=== PATIENT | female | born 1945 | race Caucasian/White ===

== ENCOUNTER → 2017-03-26 | Outpatient (CLI) | payer OTHER, BC | LOC: BMCIMAGING 12:21 | PROVIDERS: ATTEND Internal Medicine Rheumatology | DX: M06.00 Rheumatoid arthritis without rheumatoid factor, unspecified site (principal); M19.041 Primary osteoarthritis, right hand; M19.042 Primary osteoarthritis, left hand ==

== ENCOUNTER 2018-06-08 17:40 | Emergency (ER) | payer OTHER, BC ==
--- NOTE | 2018-06-08 18:24 | EDPHY ---
H & P Time Seen by Provider: 06/08/18 18:01 HPI/ROS: CHIEF COMPLAINT: Right wrist pain HISTORY OF PRESENT ILLNESS: 72-year-old female history of rheumatoid arthritis complaining of a 3-4 days of atraumatic right radial wrist pain. The patient discontinued her methotrexate a few months ago prior to spinal surgery, her methotrexate was restarted May 31 No discoloration. No fever or chills. No paresthesia. PRIMARY CARE PROVIDER: Dr. Matt Ramirez Rheumatology REVIEW OF SYSTEMS: A ten point review of systems was performed and is negative with the exception of the items mentioned in the HPI PHYSICAL EXAM (Prior to examination, patient consented to physical exam, hands were washed and my usual and customary physical exam procedures followed) 1) GENERAL: Well-developed, well-nourished, alert and oriented. Appears to be in no acute distress. 2) HEAD: Normocephalic 3) HEENT: Pupils equal, round, reactive to light bilaterally. 4) LUNGS: Breathing comfortably. 5) MUSCULOSKELETAL: Normal coloration. Tender to palpation anatomic snuffbox. Tender to palpation range of motion of the thumb. Negative kanavel sign. No effusion. Soft compartments. Normal coloration. 6) SKIN: [ No discoloration. No erythema. 7) VASCULAR: pulses and cap refill present are brisk 8) NEUROLOGIC: Radial, ulnar, median nerve function intact with no deficits appreciated on exam DIFFERENTIAL DIAGNOSIS: in no particular order including but not limited to fracture, sprain, compartment syndrome Procedure: Splint A Velcro thumb spica splint was applied by ER plasma center technician. After application of the splint I returned and re-examined the patient. The splint was adequately immobilizing the joint and distal to the splint the patient's circulation and sensation were intact. Patient shows no signs of compartment syndrome. Was given orthopedic precautions. Smoking Status: Never smoked Constitutional: Initial Vital Signs Temperature (C) 36.6 C 06/08/18 17:44 Heart Rate 74 06/08/18 17:44 Respiratory Rate 16 06/08/18 17:44 Blood Pressure 129/84 H 06/08/18 17:44 O2 Sat (%) 98 06/08/18 17:44 O2 Delivery Mode Room Air Allergies/Adverse Reactions: cefepime Allergy (Verified 12/28/14 15:56) vancomycin Allergy (Verified 12/28/14 15:56) Home Medications: Medication Instructions Recorded Losartan Potassium 12/28/14 Pravastatin Sodium 12/28/14 Hydrocodone/APAP 5/325 [[place] 1 tab PO Q6 PRN #15 tab 06/08/18 5/325 (RX)] Methotrexate 06/08/18 Nabumetone 06/08/18 MDM/Departure - MDM Imaging Results: Imaging Impressions Wrist X-Ray 06/08/18 18:01 Impression: 1. No acute osseous findings. 2. Degenerative change as above, most severe at the 1st carpal metacarpal joint and articulation of the scaphoid with the trapezium and trapezoid. 3. Scattered possible erosions, similar to the comparisons. Images reviewed by myself ED Course/Re-evaluation: Re-evaluation with serial exams. Discussed her imaging results. Doubt septic arthritis. Read the patient's x-ray show no definitive acute osseous abnormality. No evidence of infectious tenosynovitis or cellulitis. Recommended analgesia, Velcro thumb spica, follow up with Dr. Ramirez on Sunday or Sunday as today is Sunday night. Discharge with usual and customary orthopedic precautions and instructions. She is agreeable with this plan. I saw this patient independently based on established practice protocols. Care of patient under supervision of secondary supervising physician Dr Lefty Mejias - Depart Disposition: Home, Routine, Self-Care Clinical Impression: Wrist pain Qualifiers: Laterality: right Qualified Code(s): M25.531 - Pain in right wrist Condition: Good Instructions: Arthralgia (ED) Additional Instructions: Return to the ER immediately if you experience discoloration, have worsening pain, numbness, tingling, or any other symptoms that concern you. If you received x-rays in the emergency department today, be advised, that ligamentous , tendon, muscular, and other non-bony injury cannot be fully ruled out. Try to keep your affected extremity elevated above the level of your chest, and keep cold packs on the affected area, for the next 48 hours. Prescriptions: Hydrocodone/APAP 5/325 [[place] 5/325 (RX)] 1 tab PO Q6 PRN #15 tab PRN Reason: Pain, Severe Referrals: Henny Lynch PA [Primary Care Provider] - 2-3 days, call for appt. Matt Ramirez MD [[facility] Primary Care Provider] - 2-3 days, call for appt.
[2018-06-08] MEDS ORDERED: HYDROCOD/APAP 5/325 PREPACK#6 BTL TAKEHOME ONE ×2 (19:16)
[2018-06-08 19:21] VITALS: BP 136/70
== END 2018-06-08 19:19 | disposition home or self-care (01) ==
DX: M25.531 Pain in right wrist (principal); M06.9 Rheumatoid arthritis, unspecified
CPT/HCPCS: 73110; 99283; L3984

== ENCOUNTER → 2018-07-24 | Outpatient (CLI) | payer OTHER, BC | LOC: FIMAGING 12:59 | PROVIDERS: ATTEND Physician Assistant | DX: M43.12 Spondylolisthesis, cervical region (principal) ==